=== PATIENT | male | born 1960 | race Caucasian/White ===

== ENCOUNTER 2023-11-30 09:26 | Observation (INO) | payer MEDICARE, OTHER ==
[2023-11-30] MEDS: Sodium Chloride 0.9% 1,000 ML IV ONE ×2 (09:50→11:12)
[2023-11-30 09:57] LABS: BASOPHILS ABSOLUTE AUTO 0.1 K/mm3 (0.0-0.2); BASOPHILS PERCENT AUTO 0.6 % (0.0-1.0); EOSINOPHILS ABSOLUTE AUTO 0.3 K/mm3 (0.0-0.4); EOSINOPHILS PERCENT AUTO 1.6 % (0.0-6.0); HEMATOCRIT 39.2 % (42.0-52.0); HEMOGLOBIN 13.3 gm/dl (14.0-18.0); IMMATURE GRAN ABSOLUTE AUTO 0.07 K/mm3 (0.00-0.05); IMMATURE GRAN PERCENT AUTO 0.4 % (0.0-0.4); LYMPHOCYTES ABSOLUTE AUTO 3.2 K/mm3 (1.0-4.8); LYMPHOCYTES PERCENT AUTO 19.1 % (24.0-44.0); MEAN CORPUSCULAR HEMOGLOBIN 33.6 pg (28.0-32.0); MEAN CORPUSCULAR HGB CONC 33.9 g/dl (32.0-36.0); MEAN PLATELET VOLUME 11.2 fl (9.4-12.4); MONOCYTES ABSOLUTE AUTO 1.1 K/mm3 (0.0-0.8); MONOCYTES PERCENT AUTO 6.4 % (0.0-8.0); NEUTROPHILS ABSOLUTE AUTO 11.9 K/mm3 (1.8-7.7); NEUTROPHILS PERCENT AUTO 71.9 % (41.0-71.0); PLATELET COUNT,PLT 239 K/mm3 (150-400); RED BLOOD CELL COUNT 3.96 M/mm3 (4.52-5.90); WHITE BLOOD CELL COUNT,WBC 16.62 K/mm3 (3.9-11.3)
[2023-11-30 10:19] LABS: LACTIC ACID 1.2 mmol/L (0.4-2.0); PROTHROMBIN TIME 10.6 SECONDS (9.7-12.0)
[2023-11-30 10:22] LABS: A/G RATIO 1.1 (1-2); ALBUMIN 3.9 g/dl (3.4-5.0); ANION GAP 18.3 (5-15); BILIRUBIN TOTAL 0.8 mg/dL (0.2-1.0); BUN/CREATININE RATIO 22.5 (14-18); CALCIUM 9.3 mg/dL (8.5-10.1); CREATININE 4.4 mg/dL (0.7-1.3); EST CRCL DRUG DOSING (CG) 16.19 mL/min; MAGNESIUM 2.4 mg/dL (1.8-2.4); POTASSIUM,K 5.3 mEq/L (3.5-5.1); PROTEIN TOTAL,TP 7.5 g/dl (6.4-8.2)
[2023-11-30 10:45] LABS: CORONAVIRUS COVID-19 NAA NEGATIVE (NEGATIVE); INFLUENZA A NAA NEGATIVE (NEGATIVE); RESPIRATORY SYNCYTIAL VIR NAA NEGATIVE (NEGATIVE)
[2023-11-30] MEDS: Piperacillin/Tazobactam 4.5 GM in Sodium Chloride 0.9% 100 ML IV ONE (11:20)
[2023-11-30] MEDS: Lactated Ringers 500 ML IV ONE ×2 (11:58→17:07)
[2023-11-30] MEDS ORDERED: Polyethylene Glycol 3350 Powder 17 GM Packet PO PRN (13:01)
[2023-11-30] MEDS ORDERED: Docusate Sodium 100 MG Cap PO PRN (13:01)
[2023-11-30] MEDS ORDERED: Acetaminophen 325 MG Tab PO PRN (13:01)
[2023-11-30] MEDS ORDERED: oxyCODONE 5 MG Tab PO PRN (13:01)
[2023-11-30] MEDS ORDERED: Ondansetron 4 MG/2 ML SDV IV PRN (13:01)
[2023-11-30] MEDS: Heparin Sodium 5,000 Units/ML Vial SUBCUT SCH (14:29)
[2023-11-30] MEDS: Lactated Ringers 1,000 ML IV SCH ×2 (14:30→18:26)
[2023-11-30] MEDS: Piperacillin/Tazobactam 4.5 GM in Sodium Chloride 0.9% 100 ML IV SCH (14:30)
[2023-11-30 14:43] LABS: ANION GAP 12.3 (5-15); BUN/CREATININE RATIO 26.2 (14-18); CALCIUM 8.4 mg/dL (8.5-10.1); CREATININE 3.7 mg/dL (0.7-1.3); EST CRCL DRUG DOSING (CG) 19.26 mL/min; POTASSIUM,K 5.3 mEq/L (3.5-5.1)
[2023-11-30 15:06] LABS: HEMOGLOBIN A1C 6.1 %
[2023-11-30 16:58] LABS: APPEARANCE,URINE CLEAR (Clear); BILIRUBIN,URINE NEGATIVE (Negative); COLOR,URINE YELLOW (Yellow); GLUCOSE,URINE NEGATIVE (Negative); KETONES,URINE NEGATIVE (Negative); LEUKOCYTE ESTERASE,URINE NEGATIVE (Negative); NITRITE,URINE NEGATIVE (Negative); OCCULT BLOOD,URINE NEGATIVE (Negative); PH,URINE 5.5 (5.0-8.0); PROTEIN,URINE TRACE (Negative); UROBILINOGEN,URINE 0.2 (0.2-1.0)
[2023-11-30] MEDS: 50% Dextrose in Water 50 ML Syringe IVPUSH ONE (17:00)
[2023-11-30] MEDS: Insulin Regular, Human 100 Units/ML 3 ML Vial IV ONE (17:03)
[2023-11-30 17:33] LABS: BACTERIA,URINE FEW /hpf (FEW); MUCUS,URINE FEW /hpf (FEW); RBC,URINE 0-5 /hpf (0-5); SQUAMOUS EPITHELIAL CELLS,UR 0-5 /hpf (0-5); WBC,URINE 0-5 /hpf (0-5)
[2023-11-30] MEDS ORDERED: Naloxone 0.4 MG/ML SDV IVPUSH PRN (18:04)
[2023-11-30] MEDS: Midodrine 5 MG Tab PO ONE (18:19)
[2023-11-30] MEDS: Morphine 2 MG/ML SYRINGE IVPUSH PRN (18:22)
[2023-11-30] MEDS: Celecoxib 100 MG Cap PO SCH (20:16)
[2023-12-01 04:45] LABS: BASOPHILS ABSOLUTE AUTO 0.1 K/mm3 (0.0-0.2); BASOPHILS PERCENT AUTO 0.7 % (0.0-1.0); EOSINOPHILS ABSOLUTE AUTO 0.3 K/mm3 (0.0-0.4); EOSINOPHILS PERCENT AUTO 3.2 % (0.0-6.0); HEMATOCRIT 31.5 % (42.0-52.0); HEMOGLOBIN 10.6 gm/dl (14.0-18.0); IMMATURE GRAN ABSOLUTE AUTO 0.02 K/mm3 (0.00-0.05); IMMATURE GRAN PERCENT AUTO 0.2 % (0.0-0.4); LYMPHOCYTES ABSOLUTE AUTO 2.3 K/mm3 (1.0-4.8); LYMPHOCYTES PERCENT AUTO 26.8 % (24.0-44.0); MEAN CORPUSCULAR HEMOGLOBIN 33.3 pg (28.0-32.0); MEAN CORPUSCULAR HGB CONC 33.7 g/dl (32.0-36.0); MEAN CORPUSCULAR VOLUME 99.1 fl (83.0-99.0); MEAN PLATELET VOLUME 11.1 fl (9.4-12.4); MONOCYTES ABSOLUTE AUTO 0.5 K/mm3 (0.0-0.8); MONOCYTES PERCENT AUTO 6.1 % (0.0-8.0); NEUTROPHILS ABSOLUTE AUTO 5.4 K/mm3 (1.8-7.7); PLATELET COUNT,PLT 162 K/mm3 (150-400); RED BLOOD CELL COUNT 3.18 M/mm3 (4.52-5.90); WHITE BLOOD CELL COUNT,WBC 8.62 K/mm3 (3.9-11.3)
[2023-12-01 05:18] LABS: ALBUMIN 2.8 g/dl (3.4-5.0); ANION GAP 15.7 (5-15); BILIRUBIN TOTAL 0.3 mg/dL (0.2-1.0); BUN/CREATININE RATIO 30.4 (14-18); C-REACTIVE PROTEIN 1.35 mg/dL (<0.30); CALCIUM 8.2 mg/dL (8.5-10.1); CREATININE 2.3 mg/dL (0.7-1.3); EST CRCL DRUG DOSING (CG) 30.98 mL/min; POTASSIUM,K 4.7 mEq/L (3.5-5.1); PROTEIN TOTAL,TP 5.7 g/dl (6.4-8.2)
[2023-12-01] MEDS: Pantoprazole 40 MG Tab.CR PO SCH (06:22)
[2023-12-01] MEDS: Rosuvastatin 10 MG Tab PO SCH (08:18)
[2023-12-01] MEDS: FLUoxetine 20 MG Cap PO SCH (08:18)
[2023-12-01] MEDS: FLU (Fluad Triv) TS24-25 (65UP)/MF59C/PF 45 MCG/0.5 ML Syringe IM ONE (12:52)
== END 2023-12-01 14:33 | disposition home or self-care (01) ==
LOC: JD.ED 09:26 → JD.MS 11:58
PROVIDERS: ADMIT Student in an Organized Health Care Education/Training Program; ATTEND Student in an Organized Health Care Education/Training Program
DX: I95.2 Hypotension due to drugs (principal); G43.909 Migraine, unspecified, not intractable, without status migrainosus; K21.9 Gastro-esophageal reflux disease without esophagitis; G89.29 Other chronic pain; M54.9 Dorsalgia, unspecified; M54.2 Cervicalgia; F32.A Depression, unspecified; I10 Essential (primary) hypertension; E87.5 Hyperkalemia; R73.9 Hyperglycemia, unspecified; R73.03 Prediabetes; N17.9 Acute kidney failure, unspecified; D72.829 Elevated white blood cell count, unspecified; R10.13 Epigastric pain; Z20.822 Contact with and (suspected) exposure to COVID-19; Z79.899 Other long term (current) drug therapy; Z87.891 Personal history of nicotine dependence
CPT/HCPCS: 0241U; 36415; 70450; 71045; 80048; 80053; 81001; 83036; 83605; 83690; 83735; 83880; 84484; 85025; 85610; 85730; 86140; 87040; 87154; 90653; 93005; 94761; 96361; 96365; 96366; 96372; 96375; 99285; G0008; G0378; J1644; J2270; J2543; J3490; J7030; J7120; 93010; A9270-GY

== ENCOUNTER 2024-02-06 17:51 | Observation (INO) | payer MEDICARE, OTHER ==
[2024-02-06] MEDS: LORazepam 2 MG/ML SDV IV ONE (19:31)
[2024-02-06 19:45] LABS: BASOPHILS PERCENT AUTO 0.1 % (0.0-1.0); EOSINOPHILS PERCENT AUTO 0.1 % (0.0-6.0); HEMATOCRIT 40.3 % (42.0-52.0); HEMOGLOBIN 13.5 gm/dl (14.0-18.0); IMMATURE GRAN ABSOLUTE AUTO 0.03 K/mm3 (0.00-0.05); IMMATURE GRAN PERCENT AUTO 0.3 % (0.0-0.4); LYMPHOCYTES ABSOLUTE AUTO 2.5 K/mm3 (1.0-4.8); MEAN CORPUSCULAR HEMOGLOBIN 32.3 pg (28.0-32.0); MEAN CORPUSCULAR HGB CONC 33.5 g/dl (32.0-36.0); MEAN CORPUSCULAR VOLUME 96.4 fl (83.0-99.0); MEAN PLATELET VOLUME 10.8 fl (9.4-12.4); MONOCYTES ABSOLUTE AUTO 0.9 K/mm3 (0.0-0.8); MONOCYTES PERCENT AUTO 8.2 % (0.0-8.0); NEUTROPHILS ABSOLUTE AUTO 7.9 K/mm3 (1.8-7.7); NEUTROPHILS PERCENT AUTO 69.3 % (41.0-71.0); PLATELET COUNT,PLT 268 K/mm3 (150-400); RED BLOOD CELL COUNT 4.18 M/mm3 (4.52-5.90); WHITE BLOOD CELL COUNT,WBC 11.44 K/mm3 (3.9-11.3)
[2024-02-06 20:06] LABS: A/G RATIO 1.2 (1-2); ALBUMIN 3.8 g/dl (3.4-5.0); BILIRUBIN TOTAL 0.7 mg/dL (0.2-1.0); CALCIUM 9.3 mg/dL (8.5-10.1); EST CRCL DRUG DOSING (CG) 76.04 mL/min; PROTEIN TOTAL,TP 7.1 g/dl (6.4-8.2)
[2024-02-06] MEDS: LORazepam 2 MG/ML SDV IVPUSH ONE (22:12)
[2024-02-06] MEDS: Labetalol 100 MG/20 ML MDV IVPUSH ONE (22:13)
[2024-02-06] MEDS: Potassium Chloride 10 MEQ in Premix Bag 1 BAG IV SCH (23:46)
[2024-02-06] MEDS: LORazepam 2 MG/ML SDV ONE (23:46)
[2024-02-07] MEDS: Sodium Chloride 0.9% 1,000 ML IV SCH (00:56)
[2024-02-07] MEDS: Haloperidol Lactate 5 MG/ML SDV IVPUSH ONE ×2 (02:20→07:06)
[2024-02-07] MEDS ORDERED: Magnesium Sulfate/Water Premix 2 GM/50 ML BAG IV ONE (04:16)
[2024-02-07] MEDS ORDERED: Magnesium Sulfate/Water Premix 2 GM in Premix Bag 1 BAG IV ONE (04:17)
[2024-02-07] MEDS: Magnesium Sulfate/Water Premix 2 GM/50 ML BAG IV SCH (04:32)
[2024-02-07] MEDS: Sodium Chloride 0.9% 10 ML Syringe FLUSH PRN (06:38)
[2024-02-07] MEDS ORDERED: Acetaminophen 325 MG Tab PO PRN (08:10)
[2024-02-07] MEDS ORDERED: Ondansetron 4 MG/2 ML SDV IV PRN (08:10)
[2024-02-07] MEDS ORDERED: Polyethylene Glycol 3350 Powder 17 GM Packet PO PRN (09:00)
[2024-02-07] MEDS ORDERED: Docusate Sodium 100 MG Cap PO PRN (09:00)
[2024-02-07 09:36] LABS: BASOPHILS PERCENT AUTO 0.3 % (0.0-1.0); EOSINOPHILS ABSOLUTE AUTO 0.1 K/mm3 (0.0-0.4); EOSINOPHILS PERCENT AUTO 0.5 % (0.0-6.0); HEMATOCRIT 37.7 % (42.0-52.0); HEMOGLOBIN 12.3 gm/dl (14.0-18.0); IMMATURE GRAN ABSOLUTE AUTO 0.04 K/mm3 (0.00-0.05); IMMATURE GRAN PERCENT AUTO 0.4 % (0.0-0.4); LYMPHOCYTES ABSOLUTE AUTO 2.1 K/mm3 (1.0-4.8); MEAN CORPUSCULAR HEMOGLOBIN 32.1 pg (28.0-32.0); MEAN CORPUSCULAR HGB CONC 32.6 g/dl (32.0-36.0); MEAN CORPUSCULAR VOLUME 98.4 fl (83.0-99.0); MEAN PLATELET VOLUME 10.6 fl (9.4-12.4); MONOCYTES ABSOLUTE AUTO 0.8 K/mm3 (0.0-0.8); MONOCYTES PERCENT AUTO 7.8 % (0.0-8.0); NEUTROPHILS ABSOLUTE AUTO 6.7 K/mm3 (1.8-7.7); PLATELET COUNT,PLT 235 K/mm3 (150-400); RED BLOOD CELL COUNT 3.83 M/mm3 (4.52-5.90); WHITE BLOOD CELL COUNT,WBC 9.74 K/mm3 (3.9-11.3)
[2024-02-07 10:15] LABS: A/G RATIO 1.1 (1-2); ALBUMIN 3.3 g/dl (3.4-5.0); ANION GAP 14.4 (5-15); BILIRUBIN TOTAL 0.8 mg/dL (0.2-1.0); BUN/CREATININE RATIO 17.5 (14-18); CALCIUM 9.1 mg/dL (8.5-10.1); CREATININE 0.8 mg/dL (0.7-1.3); EST CRCL DRUG DOSING (CG) 101.04 mL/min; MAGNESIUM 2.7 mg/dL (1.8-2.4); POTASSIUM,K 3.4 mEq/L (3.5-5.1); PROTEIN TOTAL,TP 6.4 g/dl (6.4-8.2); TSH 0.583 uIU/mL (0.358-3.74)
[2024-02-07] MEDS: Enoxaparin 40 MG/0.4 ML Syringe SUBCUT SCH (10:42)
[2024-02-07] MEDS: Potassium Chloride 20 MEQ Tab.ER PO SCH (10:42)
[2024-02-07] MEDS: Nystatin Topical Powder 15 GM Bottle TOP PRN (10:43)
[2024-02-07 11:55] LABS: APPEARANCE,URINE CLEAR (Clear); BILIRUBIN,URINE NEGATIVE (Negative); COLOR,URINE YELLOW (Yellow); GLUCOSE,URINE NEGATIVE (Negative); KETONES,URINE NEGATIVE (Negative); LEUKOCYTE ESTERASE,URINE NEGATIVE (Negative); NITRITE,URINE NEGATIVE (Negative); OCCULT BLOOD,URINE NEGATIVE (Negative); PROTEIN,URINE NEGATIVE (Negative)
[2024-02-07 11:59] LABS: BARBITURATE SCREEN,URINE NEGATIVE (CUTOFF=200); BENZODIAZEPINES SCREEN,URINE PRESUMPTIVE POSITIVE (CUTOFF=150); BUPRENORPHINE SCREEN,URINE NEGATIVE (CUTOFF=10); METHADONE SCREEN, URINE NEGATIVE (CUT0FF=200); METHAMPHETAMINES SCREEN, URINE NEGATIVE (CUTOFF=500); OXYCODONE SCREEN,URINE NEGATIVE (CUT0FF=100); THC SCREEN,URINE 20 NG/ML PRESUMPTIVE POSITIVE (CUTOFF=50)
[2024-02-07 12:03] LABS: AMPHETAMINES SCREEN, URINE NEGATIVE (CUTOFF=500)
== END 2024-02-07 13:30 | disposition home or self-care (01) ==
LOC: JD.ED 17:51 → JD.ICU 22:48
PROVIDERS: ADMIT Family Medicine; ATTEND Family Medicine
DX: R44.3 Hallucinations, unspecified (principal); E87.6 Hypokalemia; K21.9 Gastro-esophageal reflux disease without esophagitis; F32.A Depression, unspecified; I10 Essential (primary) hypertension; R41.0 Disorientation, unspecified; E83.42 Hypomagnesemia; F17.210 Nicotine dependence, cigarettes, uncomplicated; Z79.899 Other long term (current) drug therapy
CPT/HCPCS: 36415; 70450; 70450-26; 72125; 72125-26; 80053; 80306; 80307; 81003; 82140; 82607; 82746; 83735; 84443; 85025; 93005; 97162-GP; 97530-GP; A9270-GY; J1630; J1650; J1920; J2060; J3475; J3480; J7030